=== PATIENT | female | born 1965 | race Asian ===

== ENCOUNTER 2019-01-11 10:40 | Emergency (ER) | payer OTHER, SELFPAY ==
[2019-01-11 10:45] VITALS: BP 158/96; PULSE 70; RESP 16; TEMP 36.5; O2SAT 100; BMI 22.6
--- NOTE | 2019-01-11 11:09 | ED_ITS ---
HPI - Allergic Reaction General Chief complaint: Allergic Reaction Stated complaint: swollen face with rash Time Seen by Provider: 01/11/19 11:09 Source: patient Mode of arrival: ambulatory Limitations: no limitations History of Present Illness HPI narrative: This is a 53-year-old female comes to the emergency department with complaint of swollen face with rash. Patient states that happened for a day earlier in the week and then resolved and then started up yesterday and has not resolved. Patient states she has got a lot of dry, flaking skin her face feels a little swollen, tight and a little bit itchy. Not really painful but uncomfortable. No fevers or chills. It is mostly sparing the forehead little bit along the edges of the hairline and across the nose cheek and jaw. It spares the neck she does not have a rash elsewhere. She has not had any other symptoms. She did start using a new skin care line about 2 months ago called Oxynade from [employer]. She is unsure of the products but states there is 1 that is supposed to be gel, this several products used together. She does not appreciate that she has been out in the sun more recently although has been quite chani lately. She takes Tylenol occasionally but no other regular medications. She has had 3 prior C-sections no other surgeries. No allergies that she is aware of. She has not used any other pills or other interventions to her face no other new lotions, medications or ingestions. Related Data Home Medications Medication Instructions Recorded Confirmed acetaminophen 1 dose PO PRN PRN #0 08/31/17 01/11/19 Previous Rx's Medication Instructions Recorded prednisone 20 mg PO DAILY #3 tab 01/11/19 Review of Systems Review of Systems ROS Unobtainable: All systems reviewed & are unremarkable except as noted in HPI and below [facility] Surgical History (Updated 01/11/19 @ 11:39 by Jenny Muñoz DO) History of (Chronic) Social History Smoking Status: Never smoker Social History Smoking Status: Never smoker Exam Narrative Exam Narrative: GEN: well nourished, well appearing female, alert and oriented x 3, patient appears to be in mild distress. HEENT: Atraumatic, pupils are equal round reactive to light, extraocular movements are intact, nares are clear, TMs are clear with no fluid, there is no conjunctival pallor. Throat is clear without any exudates, erythema, tonsillar enlargement or uvular deviation HEART: Regular rate and rhythm without murmur, clicks, rubs. LUNGS:Lungs clear to auscultation, no wheezes, rales, crackles, chest moves symmetrically ABD:bowel sounds normal, soft, non-tender, no guarding, rebound, rigidity, no masses noted, no hepatosplenomegal MSCL: Full range of motion, normal gait NEURO:CN 2-12 intact, sensation normal SKIN: Patient has sparing except for the face, the forehead is mostly spared she has some erythema as well as dry flaking skin particularly below and on the labial folds, at the nasal labial folds and over the outer cheek. Patient is generalized erythema with some slight generalized swelling. No involvement of the eyes or more oral mucosa. Rash stops just underneath the edge of the jaw line Initial Vital Signs Initial Vital Signs: Vital Signs Temperature 97.7 F 01/11/19 10:45 Pulse Rate 70 01/11/19 10:45 Respiratory Rate 16 01/11/19 10:45 Blood Pressure 158/96 H 01/11/19 10:45 Pulse Oximetry 100 01/11/19 10:45 Course Vital Signs - 8 hr 01/11/19 10:45 Temperature 97.7 F Pulse Rate 70 Respiratory Rate 16 Blood Pressure 158/96 H Pulse Oximetry 100 MDM - Allergic Reaction MDM Narrative Medical decision making narrative: Discussed with patient I suspect this is related to her skin care products, possibly in combination with the recent chani weather. Discussed stopping the topical skin products, washing just with water, she may apply an Aquaphor or similar type moisturizer. And will do a very short course of low dose oral steroid. Patient was asked to avoid sun, new products and follow up with primary care or dermatology for recheck. Discharge Plan Departure Patient Disposition: Home Clinical Impression: Facial rash Discharge Date/Time: 01/11/19 11:59 Interventions: ED Discharge Assessment Last Done: 01/11/19 11:58 Instructions: DI for Rash Activity Restrictions/Additional Instructions: Follow up with primary care or dermatology in the next week. Call for an appointment. Stop using your skin care products. Avoid any other soaps or lotions to affected areas. You may wash with water and pat your skin dry twice daily. Use topical gentle moisturizer such as aquaphor to affected areas. Avoid the sun, wear hats or other protective clothing Return to the emergency department for worsening rash, fevers going 100.4 F, if your having swelling of your mouth, tongue or oropharynx, difficulty swallowing, if her having rash that is spreading to other portions of her body, new blisters or peeling or other new or concerning symptoms. Prescriptions: New prednisone 20 mg tablet 20 mg PO DAILY Qty: 3 RF: 0 No Action acetaminophen 325 MG tablet 1 dose PO PRN PRN (Reason: pain) Qty: 0 RF: 0 Referrals: Maggie Calloway MD [Non-Staff] - Nereyda Snowden MD [Primary Care Provider] - Jayjay Allen MD [Non-Staff] - Stand Alone Forms: Work Release Note
== END 2019-01-11 11:59 | disposition home or self-care (01) ==
PROVIDERS: Emergency Provider Emergency Medicine; PCP Internal Medicine
DX: R21 Rash and other nonspecific skin eruption (principal)
CPT/HCPCS: 99282

== ENCOUNTER 2019-06-01 11:27 | Emergency (ER) | payer OTHER, SELFPAY ==
[2019-06-01 11:35] VITALS: BP 98/79; PULSE 75; RESP 18; TEMP 36.8; O2SAT 100; BMI 21.7
--- NOTE | 2019-06-01 11:35 | DI.RAD.S_ITS ---
PROCEDURE: XR FINGER RT MIN 2V INDICATIONS: pain, deformity after injury TECHNIQUE: AP hand, 2 views of the first finger(s) acquired. COMPARISON: None. FINDINGS: Bones: No fractures or dislocations. No suspicious bony lesions. Soft tissues: No suspicious soft tissue calcifications. IMPRESSION: No trauma found. No dislocation identified. Dictated by: Isidro Bowles M.D. on 06/01/2019 at 12:19 Approved by: Isidro Bowles M.D. on 06/01/2019 at 12:21
--- NOTE | 2019-06-01 11:40 | PC.NURSE ---
patient with pain to right thumb after hearing a pop while attempting to lift dumpster lid, +ROM with pain, denies numbness/tingling, cap refill is brisk, no acute deformity
--- NOTE | 2019-06-01 11:40 | ED.GENADULT ---
HPI - General Adult General Chief complaint: Extremity Injury, Upper Stated complaint: possible dislocation of R thumb Time Seen by Provider: 06/01/19 11:31 Source: patient Mode of arrival: Ambulatory Limitations: no limitations History of Present Illness HPI narrative: Patient comes emergency department complaining of possible dislocation of her right thumb. She states that the thumb was not directly injured, but she did lift a dumpster lid with her thumb and hand and felt as though she may have hyperextended the thumb. She states that when she pushes in from the radial aspect, her MCP joint seems to caving in on that side and she is concerned may mean there's a dislocation. Patient is able to flex her thumb somewhat, she states, but it hurts. She denies any other injuries anywhere else. She states the lid of the dumpster did not slam on her thumb. No swelling. No numbness or tingling. No other complaints at this time Related Data Home Medications Medication Instructions Recorded Confirmed acetaminophen 1 dose PO PRN PRN #0 08/31/17 01/11/19 Previous Rx's Medication Instructions Recorded prednisone 20 mg PO DAILY #3 tab 01/11/19 Review of Systems Constitutional Constitutional: Denies chills, Denies fatigue, Denies fever(s), Denies frequent falls, Denies lethargy and Denies weakness Eyes Eyes: Denies change in vision, Denies eye discharge, Denies irritation and Denies loss of vision ENT Ears, Nose, Mouth, and Throat: Denies change in voice, Denies dizziness, Denies neck pain, Denies sore throat and Denies throat swelling Cardiovascular Cardiovascular: Denies chest pain, Denies irregular heart rhythm, Denies lightheadedness, Denies palpitations, Denies dyspnea, Denies dyspnea on exertion and Denies orthopnea Respiratory Respiratory: Denies cough, Denies dyspnea, Denies dyspnea on exertion and Denies wheezing Gastrointestinal Gastrointestinal: Denies abdominal pain, Denies change in bowel habits, Denies diarrhea, Denies nausea and Denies vomiting Genitourinary Genitourinary: Denies hematuria, Denies flank pain, Denies urinary incontinence and Denies urinary urgency Musculoskeletal Musculoskeletal: Denies back pain, Denies muscle weakness, Denies neck pain, Denies numbness and Denies tingling Comments: Right thumb pain Integumentary/Breasts Skin/Breast: Denies pruritus, Denies erythema, Denies rash and Denies wounds Neurologic Neurologic: Denies behavioral changes, Denies confusion, Denies dizziness, Denies frequent falls, Denies loss of vision, Denies numbness, Denies tingling and Denies weakness Psychiatric Psychiatric: Denies anxiety, Denies behavioral changes, Denies confusion, Denies depression, Denies homicidal ideation and Denies suicidal ideation Endocrine Endocrine: Denies fatigue, Denies flushing and Denies palpitations Hematologic/Lymphatic Hematologic/Lymphatic: Denies easy bruising Allergic/Immunologic Allergic/Immunologic: Denies urticaria, Denies throat swelling and Denies wheezing Patient History Medical History Migraine headache (Acute) Surgical History History of (Chronic) Social History Smoking Status: Never smoker Smoking Status: Never smoker alcohol intake frequency: holidays/special occasions only Alcohol type: wine Substance Use Type: does not use Exam Initial Vital Signs Initial Vital Signs: Vital Signs Temperature 98.3 F 06/01/19 11:35 Pulse Rate 75 06/01/19 11:35 Respiratory Rate 18 06/01/19 11:35 Blood Pressure 98/79 06/01/19 11:35 Pulse Oximetry 100 06/01/19 11:35 Const General: cooperative and well developed Nutritional Appearance: well nourished [facility] Head: normocephalic and atraumatic Ears: external ears normal and TM's normal bilaterally Nose: external nose normal and No nasal discharge Face and sinus: sinuses nontender, face symmetric, no sinus tenderness and No dry mucous membranes Mouth: oral mucosae normal and moist mucous membranes Teeth and gingiva: dentition normal Throat: tonsils normal and uvula midline Eyes General: appearance normal, both eyes and all related structures Eyelids: eyelids normal Conjunctivae: conjunctivae normal Sclera: sclerae normal Pupils: PERRL EOM: EOM intact bilaterally Neck Neck: normal visual inspection, trachea midline, No lymphadenopathy, No midline deformity and No JVD Lymphatic: No lymphedema Chest Chest: normal inspection of the chest Resp Effort & Inspection: normal respiratory effort, able to speak in complete sentences, no respiratory distress and no use of accessory muscles Cardio Pulses: normal peripheral pulses Back/Spine/Pelvis Back: No CVA tenderness Cervical Spine: cervical ROM normal and No pain with cervical ROM Thoracic/Lumbar Spine: thoracic and lumbar spine normal to inspection Skin General: no rashes or lesions noted, No jaundice and No petechiae Other: No contusion or swelling of the right thumb or hand. Neuro General: alert, oriented x3, gait normal and no focal motor deficits Speech: speech normal Extrem Other: Patient has somewhat limited range of motion of her right thumb. She points to the MCP joint area as being the area she was concerned about, but there is no deformity of the joint. Patient does have some mediolateral laxity of the joint, but this does not cause a sharp pain. Patient is able to flex and extend, oppose small finger and thumb tips, and oppose index and thumb finger tips to make the okay sign. She is able to give the thumbs up sign to about a 60 degree angle. There is mild tenderness over the thenar eminence, but no tenderness anywhere else on the hand. Psych Appearance: well kempt Mental Status: mental status grossly normal Attitude: cooperative Thought Content: normal and suicidality Judgment: judgment good Course Course Course Narrative: Patient was worked up with an x-ray series of her right thumb. I did not find evidence of dislocation, and the x-ray was negative. I explained to the patient as she is most likely strained her thumb, and as such, will fit her with an aluminum foam splint for support. She may dispense with this splint once her thumb is feeling better. We've discussed that she should only use the thumb gently until it is feeling better. We've also discussed the usual indications for return. Orders Ordered: ED Orders 06/01/19 11:35 XR finger RT min 2V Stat Vital Signs Vital signs: Vital Signs - 8 hr 06/01/19 11:35 Temperature 98.3 F Pulse Rate 75 Respiratory Rate 18 Blood Pressure 98/79 Pulse Oximetry 100 Medical Decision Making Medical Records Medical records reviewed: Yes I reviewed the patient's medical records. Imaging Data thumb x-ray: Radiologist's Impression: PROCEDURE: XR FINGER RT MIN 2V INDICATIONS: pain, deformity after injury TECHNIQUE: AP hand, 2 views of the first finger(s) acquired. COMPARISON: None. FINDINGS: Bones: No fractures or dislocations. No suspicious bony lesions. Soft tissues: No suspicious soft tissue calcifications. IMPRESSION: No trauma found. No dislocation identified. Dictated by: Isidro Bowles M.D. on 06/01/2019 at 12:19 Approved by: Isidro Bowles M.D. on 06/01/2019 at 12:21 Discharge Plan Departure Patient Disposition: Home Clinical Impression: Sprain of right thumb Qualifiers: Encounter type: initial encounter Sprain of finger site: metacarpophalangeal joint Qualified Code(s): S63.641A - Sprain of metacarpophalangeal joint of right thumb, initial encounter Discharge Date/Time: 06/01/19 12:30 Instructions: DI for Finger Sprain Activity Restrictions/Additional Instructions: Your x-rays look good. There is no evidence of a dislocated thumb. You may have sprained your thumb, and for this, you have been put in a removable finger splint. When your thumb is feeling better, you may CC using the splint. You may use ice, ibuprofen, and Tylenol to help with any discomfort you may have. Avoid any hard or strenuous movements of your thumb until the thumb is feeling better. Prescriptions: No Action acetaminophen 325 MG tablet 1 dose PO PRN PRN (Reason: pain) Qty: 0 RF: 0 prednisone 20 mg tablet 20 mg PO DAILY Qty: 3 RF: 0 Referrals: Nereyda Snowden MD [Primary Care Provider] -
== END 2019-06-01 12:30 | disposition home or self-care (01) ==
PROVIDERS: Emergency Provider Emergency Medicine; PCP Internal Medicine
DX: S63.641A Sprain of metacarpophalangeal joint of right thumb, initial encounter (principal)
CPT/HCPCS: 73140; 99283